=== PATIENT | female | born 1980 | race Caucasian/White ===

== ENCOUNTER 2020-07-23 12:36 | Emergency (ER) | payer BC, OTHER ==
[2020-07-23 13:10] VITALS: TEMP 98.8; BMI 34.7
[2020-07-23] MEDS ORDERED: SODIUM CHLORIDE 1,000 ML IV STA (13:10)
--- NOTE | 2020-07-23 13:31 | PDOC ---
History of Present Illness - General Chief Complaint: Back Pain Stated Complaint: RIGHT LOWER BACK PAIN Time Seen by Provider: 07/23/20 12:41 - History of Present Illness Initial Comments: 07/23/20 13:31 39 F with no PMH presents to ED with R flank pain. Pt states that she awoke with pain in her R flank. It was initially mild in the morning, but this afternoon, it suddenly flared up and became severe. Pt also reports an episode of nausea and vomiting. Since she arrived to the ER, the pain and nausea have subsided, but she reports some residual flank pain. Denies diarrhea/constipation. Pt also notes she is on her period and is having some menstrual cramps, which are typical for her. Past History - Medical History Allergies/Adverse Reactions: Allergies Allergy/AdvReac Type Severity Reaction Status Date / Time No Known Allergies Allergy Verified 07/23/20 13:00 Home Medications: Ambulatory Orders Red Yeast Rice 600 mg PO DAILY 07/23/20 Asthma: No Cancer: No Cardiac Disorders: No COPD: No Diabetes: No HTN: No Seizures: No Thyroid Disease: No - Reproductive History Is Patient Now?: No - Immunization History Immunization Up to Date: Yes - Psycho-Social/Smoking History Smoking History: Never smoked Have you smoked in the past 12 months: No Information on smoking cessation initiated: No - Substance Abuse Hx (Audit-C & DAST Scrn) How often the patient has a drink containing alcohol: Never Score: In Men: 4 or > Positive; In Women: 3 or > Positive: 0 Screen Result (Pos requires Nsg. Audit-10AR): Negative In the last yr the pt used illegal drug/Rx for NonMed reason: No Score: Yes response is considered Positive: 0 Screen Result (Positive result requires Nsg. DAST-10): Negative Review of Systems - Review of Systems Comments:: 07/23/20 13:37 "GENERAL/CONSTITUTIONAL: No fever or chills. No weakness. HEAD, EYES, EARS, NOSE AND THROAT: No change in vision. No ear pain or discharge. No sore throat. CARDIOVASCULAR: No chest pain, no shortness of breath, no loss of consciousness RESPIRATORY: No cough, wheezing, or hemoptysis. GASTROINTESTINAL: + nausea, vomiting, no diarrhea or constipation. GENITOURINARY: + flank pain, No dysuria, frequency, or change in urination. MUSCULOSKELETAL: No joint or muscle swelling or pain. No neck or back pain. SKIN: No rash NEUROLOGIC: No vertigo, no change in strength/sensation. ENDOCRINE: No increased thirst. No abnormal weight change. HEMATOLOGIC/LYMPHATIC: No anemia, easy bleeding, or history of blood clots. ALLERGIC/IMMUNOLOGIC: No hives or skin allergy. *Physical Exam - Vital Signs Last Vital Signs Temp Pulse Resp BP Pulse Ox 98.8 F 84 18 138/81 100 07/23/20 12:38 07/23/20 12:38 07/23/20 12:38 07/23/20 12:38 07/23/20 12:38 - Physical Exam 07/23/20 13:38 "GENERAL: Awake, alert, and fully oriented, in no acute distress. HEAD: No signs of trauma EYES: PERRLA, EOMI, sclera anicteric, conjunctiva clear ENT: Auricles normal inspection, hearing grossly normal, nares patent, oropharynx clear without exudates. Moist mucosa NECK: Nontender, no stepoffs, Normal ROM, supple, no lymphadenopathy, JVD, or masses LUNGS: Breath sounds equal, clear to auscultation bilaterally. No wheezes, and no crackles HEART: Regular rate and rhythm, normal S1 and S2, no murmurs, rubs or gallops ABDOMEN: + RLQ TTP, normoactive bowel sounds. No guarding, no rebound. No masses BACK: + mild R CVAT EXTREMITIES: Normal range of motion, no edema. No clubbing or cyanosis. No cords, erythema, or tenderness NEUROLOGICAL: Cranial nerves II through XII intact. 5/5 strength and sensation in all extremities, Normal speech, normal gait, normal cerebellar function SKIN: Warm, Dry, normal turgor, no rashes or lesions noted. ED Treatment Course - LABORATORY CBC & Chemistry Diagram: 07/23/20 13:30 07/23/20 13:30 Medical Decision Making - Medical Decision Making 07/23/20 13:38 39 F with R flank pain. Suspect renal colic. Pt on exam also with mild RLQ tenderness, which may be 2/2 kidney stone or could be due to menstrual cramps. Also consider appy, though less likely as pt with no fevers, rebound, guarding. - Labs, UA - IVF - CT 07/23/20 16:51 UA with + blood, but pt is on her period currently Labs otherwise normal CT obtained, with no evidence of stones or acute appy. Pt reassessed - states pain has completely subsided, no recurrent episodes of pain since being in the ER Pt is well appearing, with normal vitals. Clinically stable for DC at this time. I discussed the physical exam findings, ancillary test results and final diagnoses with the patient. I answered all of the patient's questions. The patient was satisfied with the care received and felt comfortable with the discharge plan and treatment plan. The patient agrees to follow up with the primary care physician within 24-72 hours. Discharge - Discharge Information Problems reviewed: Yes Clinical Impression/Diagnosis: Flank pain, Abdominal pain, Nausea & vomiting Condition: Stable Disposition: HOME - Follow up/Referral - Patient Discharge Instructions Patient Printed Discharge Instructions: DI for Abdominal Pain-Adult Additional Instructions: Your bloodwork and CT scan today did not show any serious problems. If you experience recurrent pain, vomiting, fevers, or any other concerning symptoms, return to the ER immediately. Otherwise, follow up with your primary doctor within 1-2 weeks. - Post Discharge Activity
[2020-07-23 13:48] LABS: BASO % 1.5 % (0-2.0); EOS % 0.7 % (0-4.5); HEMATOCRIT 41.2 % (32.4-45.2); HEMOGLOBIN 13.7 GM/dl (10.7-15.3); LYMPH % 20.4 % (8-40); MCH 33.8 pg (25.7-33.7); MCHC 33.1 g/dl (32.0-36.0); MEAN CELL VOLUME 102.1 fl (80-96); MEAN PLT VOLUME 8.6 fl (7.5-11.1); MONO % 7.2 % (3.8-10.2); NEUT % 70.2 % (42.8-82.8); PLATELET COUNT 303 K/MM3 (134-434); RBC 4.04 M/mm3 (3.60-5.2); RDW 12.5 % (11.6-15.6)
[2020-07-23 13:59] LABS: ALBUMIN 4.5 g/dl (3.4-5.0); BILIRUBIN,TOTAL 1.4 mg/dl (0.2-1); CALCIUM 8.7 mg/dl (8.5-10); POTASSIUM 4.3 mmol/L (3.5-5.1); TOT PROT 7.1 g/dl (6.4-8.2)
[2020-07-23 15:04] LABS: HCG,QUALITATIVE URINE Negative
[2020-07-23 15:09] LABS: EPITHELIAL CELLS FEW /hpf
[2020-07-23 16:58] VITALS: BP 121/72; PULSE 64
== END 2020-07-23 17:19 | disposition home or self-care (01) ==
LOC: FER 12:36
DX: R10.9 Unspecified abdominal pain (principal); R11.2 Nausea with vomiting, unspecified
CPT/HCPCS: 36415; 74177-TC; 80053; 81003; 81015; 84703; 85025; 87086; 99284-25; Q9967